=== PATIENT | female | born 1980 | race Caucasian/White ===

== ENCOUNTER 2018-04-21 15:34 | Outpatient (REF) | payer BC, SELFPAY | END 2018-04-21 15:54 | LOC: NCHCN 15:34 | PROVIDERS: PCP Nurse Practitioner; Visit Provider Nurse Practitioner Family | DX: R30.0 Dysuria (principal) | CPT/HCPCS: 87086 ==

== ENCOUNTER 2018-05-02 00:47 | Outpatient (CLI) | payer BC, SELFPAY ==
--- NOTE | 2018-05-02 13:51 | DI.US_ITS ---
SYMPTOMS/DIAGNOSIS: HEMATURIA, R31.9, ? KIDNEY STONE, N20.0, ? UTI RENAL ULTRASOUND: Routine examination. The right kidney measures 9.6 cm long. There is a 0.6 cm echogenic focus in the mid pole. This may represent a nonobstructing stone. The left kidney measures 10.2 cm long. There is an echogenic focus seen in the mid pole measuring 0.4 cm, which may represent a nonobstructing stone. The prevoid urinary bladder volume is 193 cc. Both ureteral jets were visualized. No intraluminal mass or bladder wall thickening is seen. The postvoid urinary bladder volume is 2 cc. IMPRESSION: Bilateral nephrolithiasis. No evidence of obstructive uropathy.
== END 2018-05-02 01:07 ==
PROVIDERS: PCP Nurse Practitioner; Visit Provider Nurse Practitioner Family
DX: R31.0 Gross hematuria (principal); N20.0 Calculus of kidney
CPT/HCPCS: 76770

== ENCOUNTER 2019-04-21 16:38 | Outpatient (CLI) | payer BC, SELFPAY ==
[2019-04-21 17:00] LABS: Bilirubin Negative (Negative); Blood Negative (Negative); Clarity Sl Cloudy (Clear); Glucose Negative (Negative); Ketones Negative (Negative); Leukocyte Esterase Small (Negative); Nitrite Positive (Negative); Urobilinogen 0.2 EU/dL (Up TO 0.2)
[2019-04-21 17:07] LABS: Bacteria Many HPF (Negative); Epithelial Cells Moderate HPF (Negative)
[2019-04-21 17:08] LABS: C & S Indicated? Yes; Casts Negative LPF (Negative); Crystals Negative HPF (Negative); Mucus Negative (Negative)
== END 2019-04-21 16:58 ==
PROVIDERS: PCP Nurse Practitioner Family; Visit Provider Nurse Practitioner Family
DX: N39.0 Urinary tract infection, site not specified (principal)
CPT/HCPCS: 87077; 81003; 81015; 87086; 87186

== ENCOUNTER 2020-02-26 10:23 | Outpatient (REF) | payer BC, SELFPAY ==
[2020-02-26 14:09] LABS: Abs Immature Grans 0.01 10^3/uL (0.0-0.06); Absolute Basophil Count 0.02 10^3/uL (0.0-0.2); Absolute Eosinophil Count 0.09 10^3/uL (0.0-0.7); Absolute Lymphocyte Count 1.18 10^3/uL (1.2-3.4); Absolute Monocyte Count 0.39 10^3/uL (0.1-0.8); Absolute Neutrophil Count 2.18 10^3/uL (1.2-6.7); Basophils % 0.5; Eosinophils % 2.3; HCT 40.7 % (36.0-46.0); HGB 13.3 g/dL (11.2-15.7); Immature Grans % 0.3; Lymphocytes % 30.5; MCH 30.6 pg (27.0-33.0); MCHC 32.7 % (32.0-36.0); MCV 93.6 fL (80-95); MPV 10.8 fL (8.0-11.0); Monocytes % 10.1; Neutrophils % 56.3; Nucleated RBC 0 %; Platelet Count 218 10^3/uL (130-400); RBC 4.35 10^6/uL (3.93-5.22); RDW 11.8 % (11.7-14.6); RDW-SD 41.2 fL; WBC 3.87 10^3/uL (4.4-10.8)
[2020-02-26 14:56] LABS: ALT 21 U/L (14-59); AST 15 U/L (15-37); Albumin 3.9 g/dL (3.4-5.0); Alkaline Phosphatase 51 U/L (46-116); Anion Gap 8.8 mmol/L (3-11); BUN 14 mg/dL (7-18); Bilirubin, Total 0.6 mg/dL (0.2-1.0); CO2 26.2 mmol/L (21.0-32.0); CREATININE 0.92 mg/dL (0.55-1.02); Calcium 8.6 mg/dL (8.5-10.1); Chloride 103 mmol/L (98-107); Folate 18.7 ng/mL (8.6-20.0); Glucose 97 mg/dL (74-106); Potassium 4.5 mmol/L (3.5-5.1); Sodium 138 mmol/L (136-145); TSH (W/Ref FT4) 2.24 uIU/mL (0.36-3.74); Total Protein 7.3 g/dL (6.4-8.2); Vitamin B12 491 pg/mL (193-986)
[2020-02-29 12:45] LABS: Lyme Ab w Rflx to Lyme Confirm Negative (Negative)
[2020-02-29 17:32] LABS: Anaplasma phagocytophilum Negative (Negative); B. miyamotoi PCR Negative (Negative); Babesia divergens/MO-1 Negative (Negative); Babesia duncani Negative (Negative); Babesia microti Negative (Negative); Ehrlichia chaffeensis Negative (Negative); Ehrlichia ewingii/canis Negative (Negative); Ehrlichia muris eauclairensis Negative (Negative)
== END 2020-02-26 10:43 ==
LOC: NCHCN 10:23
PROVIDERS: PCP Nurse Practitioner Family; Visit Provider Family Medicine
DX: R20.2 Paresthesia of skin (principal); L98.8 Other specified disorders of the skin and subcutaneous tissue
CPT/HCPCS: 80053; 87798; 82607; 82746; 84443; 85025; 86618

== ENCOUNTER 2020-05-02 02:39 | Outpatient (CLI) | payer BC, SELFPAY ==
--- NOTE | 2020-05-02 | DI.US_ITS ---
EXAM: US THYROID CLINICAL HISTORY: THYROID NODULE,E04.1. TECHNIQUE: Ultrasound thyroid performed using standard protocol. COMPARISON: No exams were available for comparison FINDINGS: Both thyroid lobes exhibit normal size, as does the isthmus. Right thyroid lobe measures 1.3 cm AP by 1 cm wide by 3.6 cm craniocaudal.. Left thyroid lobe measures 1 cm AP x 1.1 cm wide by 3.1 cm craniocaudal Isthmus is 3 millimeters thick, within normal limits. The parenchymal pattern throughout both lobes is normal. No evidence of thyroid nodules. No asymmet lily vascularity. There are few benign-appearing lymph nodes evident in both jugular chains. No gross lymphadenopathy evident. IMPRESSION: Normal ultrasound appearance of the thyroid gland. No nodules. No thyroid enlargement. Small benign-appearing bilateral lymph nodes evident in the jugular chains. DATA REPOSITORY:
== END 2020-05-02 02:59 ==
PROVIDERS: PCP Nurse Practitioner Family; Visit Provider Nurse Practitioner Family
DX: Z86.39 Personal history of other endocrine, nutritional and metabolic disease (principal)
CPT/HCPCS: 76536

== ENCOUNTER 2020-05-25 15:44 | Outpatient (REF) | payer BC, SELFPAY ==
[2020-05-25 22:07] LABS: Ferritin 77 ng/mL (8-252)
== END 2020-05-25 15:45 | disposition home or self-care (01) ==
LOC: NCHCN 15:44
PROVIDERS: PCP Nurse Practitioner Family; Visit Provider Nurse Practitioner Family
DX: G25.81 Restless legs syndrome (principal)
CPT/HCPCS: 82728

== ENCOUNTER 2021-01-18 11:50 | Outpatient (REF) | payer BC, SELFPAY | END 2021-01-18 11:51 | disposition home or self-care (01) | LOC: NCHCN 11:50 | PROVIDERS: PCP Nurse Practitioner Family; Visit Provider Nurse Practitioner Family | DX: N39.43 Post-void dribbling (principal) | CPT/HCPCS: 87086 ==

== ENCOUNTER 2021-04-12 15:57 | Outpatient (REF) | payer BC, SELFPAY ==
[2021-04-12 14:08] LABS: Bilirubin Negative (Negative); Blood Negative (Negative); Clarity Sl Cloudy (Clear); Glucose Negative (Negative); Ketones Negative (Negative); Leukocyte Esterase Negative (Negative); Nitrite Negative (Negative); Specific Gravity 1.015 (1.005-1.025); Urobilinogen 0.2 EU/dL (Up TO 0.2)
== END 2021-04-12 15:58 | disposition home or self-care (01) ==
LOC: NCHCN 15:57
PROVIDERS: PCP Nurse Practitioner Family; Visit Provider Nurse Practitioner Family
DX: R35.0 Frequency of micturition (principal)
CPT/HCPCS: 81003

== ENCOUNTER 2022-06-29 15:42 | Emergency (ER) | payer BC, SELFPAY ==
[2022-06-29 15:44] VITALS: BP 107/74; PULSE 75; RESP 16; TEMP 37.1; O2SAT 100
--- NOTE | 2022-06-29 15:45 | DI.RAD_ITS ---
Exam(s) XR FOOT LT COMPLETE EXAM: XR FOOT LT COMPLETE CLINICAL HISTORY: Foot injury. TECHNIQUE: 2D digital imaging was performed of the left foot. Three images were obtained. AP, obli que and lateral views were obtained. COMPARISON: No exams were available for comparison FINDINGS: BONES: No acute fracture is present. No bony destructive lesion is seen. JOINTS: No dislocation present. SOFT TISSUE: Normal. IMPRESSION: Unremarkable radiographs of the left foot. DATA REPOSITORY: RADIATION DOSE DELIVERED:
--- NOTE | 2022-06-29 15:55 | ED.GENADUL_ITS ---
Discharge Plan Disposition Patient Disposition: Home Condition: Stable Discharge Details Clinical Impression: Sprain of left great toe Primary Care Provider: Teresa Marsh ED Provider: Mariza Rosenbaum Home Meds and New Rx's Prescriptions: No Action multivitamin with minerals Capsule 1 cap PO DAILY Nexplanon 68 mg implant 1 implant subdermal ONCE Rx Instructions: as a single dose Discharge Instructions Instructions: Foot Sprain (ED) Additional Instructions: No evidence of fractures or broken bones on Xray. Wear the walking boot as needed for comfort. Rest, Ice, Compression elevation. Please take Tylenol or Ibuprofen with food every 4-6 hours as needed for pain and swelling. 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 Patient states she heard a POP and is unable to bear weight. 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 No obvious swelling noted on initial exam, CMS intact. PMHx includes seizures, eczema, insomnia. XR ordered, and Tylenol. X-rays within normal limits. Patient given a walking boot which she declined at this time. Instructed on home care [facility] procedures and follow-up she verbalized understanding. This text was generated using Stion dictation system, please disregard any oddities of phrase or misspellings. She feels Imaging Data Radiologic Study: Imaging: X-Ray Radiologist's impression: EXAM: XR FOOT LT COMPLETE CLINICAL HISTORY: Foot injury. TECHNIQUE: 2D digital imaging was performed of the left foot. Three images were obtained. AP, oblique and lateral views were obtained. COMPARISON: No exams were available for comparison FINDINGS: BONES: No acute fracture is present. No bony destructive lesion is seen. JOINTS: No dislocation present. SOFT TISSUE: Normal. IMPRESSION: Unremarkable radiographs of the left foot. HPI General Mode of arrival: ambulatory . Date/Time Provider Initiated Documentation: 06/29/22 15:45 . Limitations to Documentation: no limitations . Information obtained by: patient, RN notes reviewed and old records reviewed . 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 Patient states she heard a POP and is unable to bear weight. 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 No obvious swelling noted on initial exam, CMS intact. PMHx includes seizures, eczema, insomnia. Related Data Home Medications Medication Instructions Recorded Confirmed etonogestrel 68 mg subdermal 1 implant subdermal ONCE 03/02/20 05/09/20 implant (Nexplanon) multivitamin with minerals 1 cap PO DAILY 03/02/20 05/09/20 Allergies Allergy/AdvReac Type Severity Reaction Status Date / Time banana Allergy Unverified 03/26/22 11:05 Latex, Natural Rubber Allergy Unverified 03/26/22 11:05 potato Allergy Uncoded 03/26/22 11:05 General Stated Complaint: Orthopedic OSCAR: 4 Review of Systems All systems reviewed & are unremarkable except as noted in HPI and below Musculoskeletal Musculoskeletal: Reports as per HPI and Reports arthralgias PFSH All Active Problems (Updated 06/29/22 @ 16:36 by Mariza Rosenbaum NP) Sprain of left great toe (Acute) Dilation of renal collection system (Acute) Paresthesia of bilateral legs (Acute) Abnormal urine odor (Acute) Ear pain, left (Acute) RLS (restless legs syndrome) (Acute) Medical History Allergic rhinitis Allergy, food Eczema Family history of breast cancer Family hx of prostate cancer History of seizures ??seizures? x2 as teenager with no recurrence Hypomastia Insomnia Kidney stones Latex allergy Seborrheic keratosis Surgical History S/P breast augmentation S/P inguinal hernia repair Family History Father Hyperlipidemia Prostate cancer Paternal Grandmother Diabetes Maternal Grandfather Diabetes Mother Migraine Tremor Melanoma Sister Migraine Tremor Sister Migraine Oligodendroglioma Social History Smoking/Tobacco Use Status: Former Tobacco Use Smoking risk assessment performed?: Yes Alcohol Intake: current Alcohol Intake frequency: holidays/special occasions only Alcohol type: beer Drug use: Never Household members: spouse and family Housing: house Number of Children: 2 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 Tenderness with palpation Course Vital Signs Vital signs: Vital Signs Temperature 37.1 C 06/29/22 15:44 Pulse 75 06/29/22 15:44 Respiratory Rate 16 06/29/22 15:44 Blood Pressure 107/74 06/29/22 15:44 Pulse Oximetry 100 06/29/22 15:44 Temperature 37.1 C 06/29/22 15:44 Temperature Source Skin 06/29/22 15:44 Pulse 75 06/29/22 15:44 Respiratory Rate 16 06/29/22 15:44 Blood Pressure 107/74 06/29/22 15:44 Blood Pressure Position Sitting 06/29/22 15:44 Pulse Oximetry 100 06/29/22 15:44 Oxygen Delivery Method Room Air 06/29/22 15:44 Oxygen Flow Rate 0 06/29/22 15:44 Pain Level 5 06/29/22 15:51
[2022-06-29] MEDS: Acetaminophen 325 MG TAB 650 MG PO (16:45)
== END 2022-06-29 16:48 | disposition home or self-care (01) ==
PROVIDERS: Emergency Provider Registered Nurse Emergency; PCP Nurse Practitioner Family
DX: S93.502A Unspecified sprain of left great toe, initial encounter (principal); X58.XXXA Exposure to other specified factors, initial encounter
CPT/HCPCS: 81025; 99283; 73630

== ENCOUNTER → 2023-03-19 03:26 | Outpatient (CLI) | payer BC, SELFPAY ==
--- NOTE | 2023-03-19 | DI.MAMMO_ITS ---
Exam(s) MG MAMMO SCREENING 60 MIN DUR EXAM: MG MAMMO SCREENING 60 MIN DUR CLINICAL HISTORY: SCREENING, Z12.31, IMPLANTS TECHNIQUE: Mammograms were interpreted according to the usual protocol including computer analysis w ith CAD system, tomosynthesis and C-view imaging. Implant displaced cc and MLO views were also perfo rmed in addition to the routine views. COMPARISON: None. Baseline examination. FINDINGS: The breasts are composed of heterogeneously dense fibroglandular densities, Breast Density category C . No suspicious masses or suspicious microcalcifications are seen. Bilateral subpectoral implants appe ar intact. No skin thickening or abnormal axillary lymph nodes are seen. IMPRESSION: BI-RADS Category 1, Negative mammogram. Yearly screening mammography is recommended. Breast Density Category C, heterogeneously Dense. The mammogram demonstrates the patient's breast tissue is dense. Dense breast tissue is very common a nd is not abnormal but dense breast tissue can make it harder to find cancer on a mammogram. Also, de nse breast tissue may increase breast cancer risk. This information about the result of the mammogram report was provided to the patient to raise their awareness. Use this report when you speak with the patient about their risks for breast cancer, which includes their family history. At that time, you may recommend additional screening tests (Ultrasound or MRI) as they might be useful based on their r isk. A negative radiographic report should not delay biopsy if a dominant or clinically suspicious mass is present. Up to ten percent of cancers are not identified on mammography. A negative report may reinforce clinical impression. Adenosis and dense breasts may obscure an underlying neoplasm. False positive reports average 6 to 10%.
== END ==
PROVIDERS: PCP Nurse Practitioner Family; Visit Provider Nurse Practitioner Family
DX: Z12.31 Encounter for screening mammogram for malignant neoplasm of breast (principal); R92.333 Mammographic heterogeneous density, bilateral breasts
CPT/HCPCS: 77063; 77067

== ENCOUNTER 2023-07-09 16:30 | Outpatient (REF) | payer BC, SELFPAY ==
[2023-07-09 21:15] LABS: HCT 39.8 % (36.0-46.0); HGB 13.2 g/dL (11.2-15.7); MCH 30.2 pg (27.0-33.0); MCHC 33.2 % (32.0-36.0); MCV 91 fL (80-95); MPV 10.8 fL (8.0-11.0); Platelet Count 213 10^3/uL (130-400); RBC 4.37 10^6/uL (3.93-5.22); RDW 11.9 % (11.7-14.6); RDW-SD 40.3 fL; WBC 5.47 10^3/uL (4.4-10.8)
[2023-07-09 21:52] LABS: ALT 21 U/L (14-59); AST 18 U/L (15-37); Alkaline Phosphatase 64 U/L (46-116); Anion Gap 9.5 mmol/L (3-11); BUN 12 mg/dL (7-18); Bilirubin, Total 0.3 mg/dL (0.2-1.0); CO2 27.5 mmol/L (21.0-32.0); CREATININE 0.8 mg/dL (0.55-1.02); Calcium 8.8 mg/dL (8.5-10.1); Chloride 104 mmol/L (98-107); Ferritin 80 ng/mL (8-252); Glucose 86 mg/dL (74-106); Sodium 141 mmol/L (136-145); TSH (W/Ref FT4) 3.74 uIU/mL (0.36-3.74); Total Protein 7.3 g/dL (6.4-8.2)
[2023-07-09 22:27] LABS: Iron 65 ug/dL (50-170); Total Iron Binding Capacity 274 ug/dL (250-450); Transferrin Sat 24 % (15-50)
== END 2023-07-09 16:31 | disposition home or self-care (01) ==
LOC: NCHCN 16:30
PROVIDERS: PCP Nurse Practitioner Family; Visit Provider Nurse Practitioner Family
DX: Z00.00 Encounter for general adult medical examination without abnormal findings (principal); R61 Generalized hyperhidrosis; G25.81 Restless legs syndrome
CPT/HCPCS: 80053; 85027; 82728; 83540; 83550; 84443

== ENCOUNTER 2024-10-27 14:54 | Outpatient (REF) | payer BC, SELFPAY ==
--- NOTE | 2024-10-27 08:45 | PAPFT_PTH ---
PATIENT: Crystal Hdz LOC: [facility]#:[id number] AGE/SX: 44/F ROOM: RE10/27/[address]: Teresa Marsh : 1980 BED: DIS: 10/27/2024 SPEC #: [id number] RECD: 10/28/24 12:35 STATUS: CARL NUÑEZ #: [id number] CHET: 10/27/24 08:[address]: Teresa Marsh DEPT: [facility] Cytology RECD BY: Franci Cornell Tissues: 1 - CX/ENDOCX FOR PAP SMEARS Procedures: PAP THIN PREP/UVM Screening HPV DNA PROBE Comments: [id number] (HPV 16 & 18/45)
[2024-10-27 14:37] LABS: HCT 40.6 % (36.0-46.0); HGB 13.3 g/dL (11.2-15.7); MCH 30.0 pg (27.0-33.0); MCHC 32.8 % (32.0-36.0); MCV 92 fL (80-95); MPV 10.4 fL (8.0-11.0); Platelet Count 271 10^3/uL (130-400); RBC 4.43 10^6/uL (3.93-5.22); RDW 11.9 % (11.7-14.6); RDW-SD 40.2 fL; WBC 5.61 10^3/uL (4.4-10.8)
[2024-10-27 15:47] LABS: ALT 28 U/L (14-59); AST 23 U/L (15-37); Albumin 3.9 g/dL (3.4-5.0); Alkaline Phosphatase 71 U/L (46-116); Anion Gap 6.8 mmol/L (3-11); BUN 12 mg/dL (7-18); Bilirubin, Total 0.5 mg/dL (0.2-1.0); CO2 30.2 mmol/L (21.0-32.0); Calcium 9.4 mg/dL (8.5-10.1); Calculated LDL 182 mg/dL (<100); Chloride 103 mmol/L (98-107); Cholesterol 258 mg/dL (<200); Estimated GFR 109.30 (mL/min/1.73m2); Glucose 82 mg/dL (74-106); HDL Cholesterol 49 mg/dL (>or=50); Potassium 4.4 mmol/L (3.5-5.1); Sodium 140 mmol/L (136-145); TSH 3.24 uIU/mL (0.36-3.74); Total Protein 7.3 g/dL (6.4-8.2); Triglyceride 136 mg/dL (<150)
== END 2024-10-27 14:55 | disposition home or self-care (01) ==
LOC: NCHCN 14:54
PROVIDERS: PCP Nurse Practitioner Family; Visit Provider Nurse Practitioner Family
DX: Z00.00 Encounter for general adult medical examination without abnormal findings (principal); R53.82 Chronic fatigue, unspecified; Z12.4 Encounter for screening for malignant neoplasm of cervix; Z01.419 Encounter for gynecological examination (general) (routine) without abnormal findings
CPT/HCPCS: 80053; 80061; 85027; 88142; 84439; 84443; 87624

== ENCOUNTER → 2024-12-10 03:53 | Outpatient (CLI) | payer BC, SELFPAY ==
--- NOTE | 2024-12-10 11:00 | DI.MAMMO_ITS ---
Exam(s) MG MAMMO SCREENING 60 MIN DUR EXAM: MG MAMMO SCREENING 60 MIN DUR CLINICAL HISTORY: SCREENING MAMMO Z12.31. TECHNIQUE: Bilateral full field digital CC and MLO mammographic images were obtained with 3D tomosynthesis and utilizing computer aided detection (CAD). Both conventional and implant displacement views were performed COMPARISON: Prior baseline mammogram of per 2023 was reviewed. FINDINGS: Again noted are intact appearing bilateral retropectoral silicon implants Fibroglandular tissue pattern is again noted to be dense. There are no CAD designations. No new left breast findings. In the right breast on the CC view there is a suggestion of a nodular density located laterally measuring 5 x 4 mm, 4 cm in from the nipple. Spot compression view recommended. No malignant-appearing microcalcification groups in this region or elsewhere in either breast. There is no significant architectural distortion nor skin thickening-retraction. IMPRESSION: Dense bilateral fibroglandular tissue. No radiographic evidence of malignancy in the left breast. 5 x 4 mm nodular density in the right breast. Spot compression CC view and breast ultrasound recommended. BI-RADS Category 0 - Incomplete: Need additional imaging evaluation Breast Density - Category D - The breast are extremely dense, which lowers the sensitivity of the mammography. Breast density Category C or D implies that the patient has dense breast tissue. Dense breast tissue can make it harder to find cancer on a mammogram. Dense breast tissue is also associated with an increased risk of breast cancer. This information about the result of the mammogram report was provided to the patient to raise their awareness. Use this report when you speak with the patient about their risks for breast cancer, which includes their family history. At that time, you may recommend additional screening tests (Ultrasound or MRI) as these tests may add significant information. A negative radiographic report should not delay biopsy if a dominant or clinically suspicious mass is present. Up to ten percent of cancers are not identified on mammography. A negative report may reinforce clinical impression. Adenosis and dense breasts may obscure an underlying neoplasm. False positive reports average 6 to 10%. Patient will receive a letter notifying them of these results.
== END ==
PROVIDERS: PCP Nurse Practitioner Family; Visit Provider Nurse Practitioner Family
DX: Z12.31 Encounter for screening mammogram for malignant neoplasm of breast (principal); R92.323 Mammographic fibroglandular density, bilateral breasts
CPT/HCPCS: 77063; 77067

== ENCOUNTER → 2024-12-24 02:22 | Outpatient (CLI) | payer BC, SELFPAY ==
--- NOTE | 2024-12-24 | DI.US_ITS ---
Exam(s) MG MAMMO SCREEN CALL BACK UNI US BREAST RT COMPLETE EXAM: MG MAMMO SCREEN CALL BACK UNI-RIGHT AND COMPLETE RIGHT BREAST ULTRASOUND CLINICAL HISTORY: 5X4 NODULAR DENSITY RT BREAST R92.8. TECHNIQUE: Unilateral RIGHT BREAST spot mammographic images obtained with 3D tomosynthesisand utilizing computer aided detection (CAD). . Complete RIGHT breast Ultrasound was also performed, including all 4 quadrants, the retroareolar region, and the ipsilateral axilla. COMPARISON: Prior mammograms were reviewed. This additional imaging was performed due to findings described on the recent screening mammogram of 12/10/2024. FINDINGS: DIAGNOSTIC MAMMOGRAM: Additional mammographic views performed todayrender this area less concerning.We proceeded with breast ultrasound COMPLETE RIGHT BREAST ULTRASOUND: Ultrasound performed today reveals no solid or significant cystic lesions in the area described on the mammogram.. However, at the 2 o'clock position (upper inner quadrant) there is a 6 x 3 mm wider than taller slightly lobulated nodule with increased through transmission, probably a fibroadenoma. There are no other focal ultrasound findings in all 4 quadrants of the right breast. Scanning of the ipsilateral axilla reveals no significant adenopathy. IMPRESSION: 1. No significant findings in the area of recently described concern in the lateral aspect of the right breast. 2. Incidentally noted on the complete breast ultrasound is a 6 x 3 mm benign- appearing lobulated nodule at the 2 o'clock position which is probably a fibroadenoma. Appropriate follow-up as discussed by myself with the patient today is repeat breast ultrasound in 3 months time. At that time she should undergo bilateral breast ultrasound given the density of her fibroglandular tissue and this incidental finding. The patient was informed of these findings and recommendations by myself prior to leaving the department today. BI-RADS Category 3 - 3 month - Probably Benign Finding: Recommend follow-up mammography in 3 months Breast Density - Category C - The breast are heterogeneously dense, which may obscure small masses. Breast density Category C or D implies that the patient has dense breast tissue. Dense breast tissue can make it harder to find cancer on a mammogram. Dense breast tissue is also associated with an increased risk of breast cancer. This information about the result of the mammogram report was provided to the patient to raise their awareness. Use this report when you speak with the patient about their risks for breast cancer, which includes their family history. At that time, you may recommend additional screening tests (Ultrasound or MRI) as these tests may add significant information. A negative radiographic report should not delay biopsy if a dominant or clinically suspicious mass is present. Up to ten percent of cancers are not identified on mammography. A negative report may reinforce clinical impression. Adenosis and dense breasts may obscure an underlying neoplasm. False positive reports average 6 to 10%. Patient will receive a letter notifying them of these results.
== END ==
LOC: DI 02:22
PROVIDERS: PCP Nurse Practitioner Family; Visit Provider Nurse Practitioner Family
DX: Z12.31 Encounter for screening mammogram for malignant neoplasm of breast (principal); R92.8 Other abnormal and inconclusive findings on diagnostic imaging of breast
CPT/HCPCS: 76642; 77063; 77067

== ENCOUNTER 2025-01-11 13:27 | Outpatient (CLI) | payer BC, SELFPAY ==
[2025-01-11 16:48] LABS: TSH (W/Ref FT4) 3.23 uIU/mL (0.55-4.78)
== END 2025-01-11 13:28 | disposition home or self-care (01) ==
LOC: LBO 13:30
PROVIDERS: PCP Nurse Practitioner Family; Visit Provider Nurse Practitioner Family
DX: R79.89 Other specified abnormal findings of blood chemistry (principal)
CPT/HCPCS: 36415; 84439; 84443